=== PATIENT | male | born 1955 | race Hispanic/Latino ===

== ENCOUNTER 2017-09-07 00:10 | Emergency (ER) | payer BC, OTHER ==
--- OUTSIDE RECORDS SUMMARY | 2017-09-07 00:11 | XMS REPORT | Clinical Summary ---
:1955 Author Organization [facility] Address [address] [place] [id number] Phone Care Team Providers Name Role Phone Unavailable Primary Care Provider Unavailable Allergies No Known Allergies Current Medications Prescription Sig. Disp. Refills Start Date End Date Status SUMATRIPTAN SUCCINATE Take by mouth. Active (IMITREX ORAL) tamsulosin (FLOMAX) Take 1 capsule 30 capsule 0 08/21/2016 Active 0.4 mg Cp24 24 hr (0.4 mg total) by capsule mouth daily. Active Problems Problem Noted Date Kidney stone 08/20/2016 Social History Tobacco Use Types Packs/Day Years Used Date Never Smoker Alcohol Use Drinks/Week oz/Week Comments No Sex Assigned at Date Recorded Not on file Last Filed Vital Signs Not on file Plan of Treatment Not on file Implants Implanted Type Area Bessemer Bottom Maker Device Expiration Model / Identifier Date Serial / Lot Stent Uret Sft Makenzie [id number] - [id number] Uro Stent Right: [place] 10/29/2016 [id number] / Implanted: Qty: 1 on 08/20/2016 by Brant Stevenson MD [employer]: UROLOGY/GYNE / COLOGY [id number] Results Not on fileafter 09/06/2016
--- OUTSIDE RECORDS SUMMARY | 2017-09-07 00:12 | XMS REPORT ---
:1955 Author Organization [facility] Address [address] [place] [address] Dr. Don [address] [place] [id number] Care Team Providers Name Role Phone LORENA GRIFFIN Unavailable Unavailable Problems This patient has no known problems. Allergies, Adverse Reactions, Alerts This patient has no known allergies or adverse reactions. Medications This patient has no known medications. Results Test Description Test Time Test Comments Text Results Atomic Results Result Comments BASIC METABOLIC PANEL 2016-08-21 06:30:00 Test Item Value Reference Range Comments SODIUM (BEAKER) (test 141 meq/L 136-145 yapb=900) POTASSIUM (BEAKER) (test 4.2 meq/L 3.5-5.1 kavh=708) CHLORIDE (BEAKER) (test 109 meq/L 98-107 crdh=027) CO2 (BEAKER) (test rgaj=180) 21 meq/L 22-29 BLOOD UREA NITROGEN (BEAKER) 20 mg/dL 7-21 (test odis=735) CREATININE (BEAKER) (test 1.29 mg/dL 0.57-1.25 ktti=093) GLUCOSE RANDOM (BEAKER) 142 mg/dL 70-105 (test ipgz=226) CALCIUM (BEAKER) (test 8.8 mg/dL 8.4-10.2 rovg=437) EGFR (BEAKER) (test mL/min/1.73 sq m INSUFFICIENT CLINICAL DATA TO abbm=2250) CALCULATE ESTIMATED GFR. CBC W/PLT COUNT & AUTO [id number] 17:57:00 Test Item Value Reference Range Comments WHITE BLOOD CELL COUNT (BEAKER) (test zwqx=223) 5.4 K/ L 4.0-10.0 RED BLOOD CELL COUNT (BEAKER) (test bpkz=596) 4.06 M/ L 4.20-5.80 HEMOGLOBIN (BEAKER) (test binr=842) 13.2 GM/DL 13.0-16.8 HEMATOCRIT (BEAKER) (test ghme=883) 38.2 % 40.0-50.0 MEAN CORPUSCULAR VOLUME (BEAKER) (test umeq=918) 94.1 fL 82.0-98.0 MEAN CORPUSCULAR HEMOGLOBIN (BEAKER) (test 32.6 pg 27.0-33.0 pkyz=338) MEAN CORPUSCULAR HEMOGLOBIN CONC (BEAKER) (test 34.6 GM/DL 32.0-36.0 mzfc=951) RED CELL DISTRIBUTION WIDTH (BEAKER) (test 11.5 % 10.3-14.2 ownm=478) PLATELET COUNT (BEAKER) (test lmki=829) 120 K/CU MM 150-430 MEAN PLATELET VOLUME (BEAKER) (test xbzo=380) 8.3 fL 6.5-10.5 NUCLEATED RED BLOOD CELLS (BEAKER) (test 0 /100 WBC 0-0 emjs=585) NEUTROPHILS RELATIVE PERCENT (BEAKER) (test 58 % rhyp=669) LYMPHOCYTES RELATIVE PERCENT (BEAKER) (test 29 % hndk=300) MONOCYTES RELATIVE PERCENT (BEAKER) (test 6 % aeze=923) EOSINOPHILS RELATIVE PERCENT (BEAKER) (test 6 % ymqg=270) BASOPHILS RELATIVE PERCENT (BEAKER) (test 1 % upqb=542) NEUTROPHILS ABSOLUTE COUNT (BEAKER) (test 3.11 K/ L 1.80-8.00 cusj=731) LYMPHOCYTES ABSOLUTE COUNT (BEAKER) (test 1.58 K/ L 1.48-4.50 hnky=864) MONOCYTES ABSOLUTE COUNT (BEAKER) (test 0.31 K/ L 0.00-1.30 twuo=641) EOSINOPHILS ABSOLUTE COUNT (BEAKER) (test 0.31 K/ L 0.00-0.50 zezi=719) BASOPHILS ABSOLUTE COUNT (BEAKER) (test 0.07 K/ L 0.00-0.20 zype=405) 0.00BASI METABOLIC [id number] 17:55:00 Test Item Value Reference Range Comments SODIUM (BEAKER) (test 141 meq/L 136-145 vngk=804) POTASSIUM (BEAKER) (test 4.4 meq/L 3.5-5.1 ystd=087) CHLORIDE (BEAKER) (test 107 meq/L 98-107 auqd=343) CO2 (BEAKER) (test 27 meq/L 22-29 ksht=066) BLOOD UREA NITROGEN 21 mg/dL 7-21 (AKER) (test sjrq=133) CREATININE (AKER) (test 1.31 mg/dL 0.57-1.25 cddp=383) GLUCOSE RANDOM ([facility]) 95 mg/dL 70-105 (test muwd=972) CALCIUM (AKER) (test 9.3 mg/dL 8.4-10.2 vobt=187) EGFR ([facility]) (test mL/min/1.73 sq m INSUFFICIENT CLINICAL DATA ndej=3106) TO CALCULATE ESTIMATED GFR.
[2017-09-07] MEDS ORDERED: NA CHLORIDE 0.9% 1,000 ML ONE (00:34)
[2017-09-07 00:55] LABS: Absolute Lymphocytes (CBC) 2.6 K/uL (0.7-4.9); Absolute Monocytes 0.6 K/uL (0.1-1.3); Absolute Neutrophil 4.7 K/uL (1.8-8.0); Basophils % 0.8 % (0-1.3); Eosinophils % 4.3 % (0-4.4); Hematocrit 45.5 % (39.6-49.0); Lymphocytes % 30.8 % (15.3-44.8); MCV 90.8 fL (80-100); MPV 10.1 fL (7.6-11.3); Monocytes % 6.9 % (3.3-12.3); Potassium 3.9 mEq/L (3.6-5.0); RBC Red Blood Cell Count 5.01 M/uL (4.33-5.43)
[2017-09-07 01:01] LABS: Albumin 4.9 g/dL (3.2-5.5); Bilirubin Direct 0.1 mg/dL (0-0.2); Bilirubin Total 0.7 mg/dL (0.3-1.2)
--- NOTE | 2017-09-07 01:10 | ER ---
Nurse's Notes [facility] Name: Aaron Shelton Jr Age: 62 yrs Sex: Male : 1955 Arrival Date: 09/07/2017 Time: 00:10 Bed 4 Private MD: Diagnosis: Atrial fibrillation with spontaneous cardioversion Presentation: 09/07 00:18 Presenting complaint: Patient states: I FELT MY AFIB KICK IN AFTER I USED A LIDO PATCH. bp Transition of care: patient was not received from another setting of care. Onset of symptoms was September 06, 2017 at 23:00. Initial Sepsis Screen: Does the patient meet any 2 criteria? No. Patient's initial sepsis screen is negative. Does the patient have a suspected source of infection? No. Patient's initial sepsis screen is negative. Care prior to arrival: None. 00:18 Method Of Arrival: Ambulatory bp 00:18 Acuity: BENITA 3 bp Triage Assessment: 00:19 General: Appears in no apparent distress. comfortable, Behavior is calm, cooperative, bp appropriate for age. Pain: Denies pain. Historical: - Allergies: 00:19 No Known Allergies; bp - Home Meds: 00:19 Imitrex Oral [Active]; bp - PMHx: 00:19 kidney cancer; Kidney stones; Atrial Fib; bp - Immunization history:: Adult Immunizations up to date. - Social history:: Smoking status: Patient/guardian denies using tobacco. Screenin:24 Abuse screen: Denies threats or abuse. Denies injuries from another. Nutritional aa1 screening: No deficits noted. Tuberculosis screening: No symptoms or risk factors identified. Fall Risk None identified. Assessment: 00:24 General: Appears in no apparent distress. comfortable, Behavior is calm, cooperative, aa1 appropriate for age. Pain: Denies pain. Neuro: Level of Consciousness is awake, alert, obeys commands, Oriented to person, place, time, situation, Moves all extremities. Full function Gait is steady, Speech is normal. Cardiovascular: Reports palpitations, Denies chest pain, diaphoresis, fatigue, lightheadedness, nausea, shortness of breath, Capillary refill < 3 seconds Clubbing of nail beds is absent JVD is absent Patient's skin is warm and dry. Rhythm is atrial fibrillation. Respiratory: Airway is patent Respiratory effort is even, unlabored, Respiratory pattern is regular, symmetrical. GI: No signs and/or symptoms were reported involving the gastrointestinal system. : No signs and/or symptoms were reported regarding the genitourinary system. EENT: No signs and/or symptoms were reported regarding the EENT system. Derm: Skin is intact, is healthy with good turgor, Skin is pink, warm \T\ dry. Musculoskeletal: Circulation, motion, and sensation intact. Capillary refill < 3 seconds. 00:30 Reassessment: Pt cardiac rhythm converted to sinus kip w/o intervention. MD at aa1 bedside. Repeat EKG done at this time. Will send labs and monitor pt for rebound AF. Vital Signs: 00:19 BP 144 / 108; Pulse 55; Resp 18; Temp 98; Pulse Ox 100% ; Weight 97.52 kg; Height 6 ft. bp 0 in. (182.88 cm); 00:30 BP 132 / 86; Pulse 38; Resp 16; Pulse Ox 99% on R/A; Pain 0/10; aa1 00:19 Body Mass Index 29.16 (97.52 kg, 182.88 cm) bp ED Course: 00:10 Patient arrived in ED. ds1 00:13 Abhi Gaviria MD is Attending Physician. pkl 00:19 Triage completed. bp 00:19 Arm band placed on. bp 00:20 Patient has correct armband on for positive identification. Placed in gown. Bed in low aa1 position. Call light in reach. library monitor on. Pulse ox on. NIBP on. Warm blanket given. 00:23 EKG done, by ED staff, reviewed by Abhi Gaviria MD. aa1 00:30 Alex Voss RN is Primary Nurse. mg2 00:30 Inserted saline lock: 20 gauge in left antecubital area, using aseptic technique. Blood mg2 collected. 01:23 No provider procedures requiring assistance completed. IV discontinued, intact, mg2 bleeding controlled, No redness/swelling at site. Pressure dressing applied. Administered Medications: 00:38 Drug: NS 0.9% 1000 ml Route: IV; Rate: 100 ml/hr; Site: left antecubital; mg2 01:22 Follow up: IV Status: iv d/c upon discharge. mg2 Outcome: 01:09 Discharge ordered by . pkl :23 Discharged to home ambulatory, with family. mg2 :23 Condition: stable 01:23 Discharge instructions given to patient, family, Instructed on discharge instructions, follow up and referral plans. Demonstrated understanding of instructions, follow-up care. 01:24 Patient left the ED. mg2 Signatures: Fatimah Olivo, RN RN aa1 Abhi Gaviria MD MD pkl [place], Demi ds1 Darien Reza RN RN bp Alex Voss RN RN mg2
--- NOTE | 2017-09-07 01:10 | EDPHYS ---
Physician Documentation [facility] Name: Aaron Shelton Jr Age: 62 yrs Sex: Male : 1955 Arrival Date: 09/07/2017 Time: 00:10 Bed 4 Private MD: ED Physician Abhi Gaviria HPI: 09/07 00:38 This 62 yrs old Male presents to ER via Ambulatory with complaints of A-Fib pkl Onset. 00:38 The patient presents with a history of irregular heart beat. Context: The symptoms pkl occur at rest. Onset: The symptoms/episode began/occurred just prior to arrival, 1 hour(s) ago. H/O A. Fib. Recurrent episodes with different medications. Had Lidocaine patch for muscles pain prior to onset of A. Fib. Denies any chest pain.. Historical: - Allergies: 00:19 No Known Allergies; bp - Home Meds: 00:19 Imitrex Oral [Active]; bp - PMHx: 00:19 kidney cancer; Kidney stones; Atrial Fib; bp - Immunization history:: Adult Immunizations up to date. - Social history:: Smoking status: Patient/guardian denies using tobacco. ROS: 00:38 Eyes: Negative for injury, pain, redness, and discharge, ENT: Negative for injury, pkl pain, and discharge, Neck: Negative for injury, pain, and swelling. 00:38 Cardiovascular: Positive for palpitations, Negative for chest pain. 00:38 Respiratory: Negative for cough, shortness of breath. 00:38 Abdomen/GI: Negative for abdominal pain, nausea, vomiting, and diarrhea. 00:38 Back: Negative for acute changes. 00:38 : Negative for urinary symptoms. 00:38 MS/extremity: Negative for acute changes. 00:38 Skin: Negative for rash. 00:38 Neuro: Negative for altered mental status. Exam: 00:38 Head/Face: Normocephalic, atraumatic. Eyes: Pupils equal round and reactive to light, pkl extra-ocular motions intact. Lids and lashes normal. Conjunctiva and sclera are non-icteric and not injected. Cornea within normal limits. Periorbital areas with no swelling, redness, or edema. ENT: Nares patent. No nasal discharge, no septal abnormalities noted. Tympanic membranes are normal and external auditory canals are clear. Oropharynx with no redness, swelling, or masses, exudates, or evidence of obstruction, uvula midline. Mucous membranes moist. Neck: Trachea midline, no thyromegaly or masses palpated, and no cervical lymphadenopathy. Supple, full range of motion without nuchal rigidity, or vertebral point tenderness. No Meningismus. Chest/axilla: Normal chest wall appearance and motion. Nontender with no deformity. No lesions are appreciated. 00:38 Cardiovascular: Rate: normal, Rhythm: irregularly irregular. 00:38 ECG was reviewed by the Attending Physician. 00:38 Respiratory: the patient does not display signs of respiratory distress, Respirations: normal, Breath sounds: are clear throughout. 00:38 Abdomen/GI: Bowel sounds: normal, Palpation: abdomen is soft and non-tender, in all quadrants. 00:38 Back: Exam negative for acute changes. 00:38 : Exam negative for acute changes. 00:38 Musculoskeletal/extremity: Exam is negative for acute changes. 00:38 Skin: Exam negative for rash. 00:38 Neuro: Orientation: is normal, Mentation: is normal, Cranial nerves: grossly normal, Motor: is normal. Vital Signs: 00:19 BP 144 / 108; Pulse 55; Resp 18; Temp 98; Pulse Ox 100% ; Weight 97.52 kg; Height 6 ft. bp 0 in. (182.88 cm); 00:30 BP 132 / 86; Pulse 38; Resp 16; Pulse Ox 99% on R/A; Pain 0/10; aa1 00:19 Body Mass Index 29.16 (97.52 kg, 182.88 cm) bp MDM: 00:14 Patient medically screened. pkl 00:43 Data reviewed: vital signs, nurses notes, lab test result(s), EKG. ED course: pkl Spontaneous cardioversion noted. Marked bradycardia without any symptoms noted. Patient said this is normal for him.. 01:07 ED course: Feeling better. Asymptomatic. pkl 09/07 00:32 Order name: CBC with Diff; Complete Time: 01:04 pkl 09/07 00:32 Order name: Chem 7; Complete Time: 01:04 pkl 09/07 00:32 Order name: LFT's; Complete Time: 01:04 pkl 09/07 00:32 Order name: CPK; Complete Time: 01:04 pkl 09/07 00:32 Order name: Troponin (emerg Dept Use Only); Complete Time: 01:10 pkl Administered Medications: 00:38 Drug: NS 0.9% 1000 ml Route: IV; Rate: 100 ml/hr; Site: left antecubital; mg2 01:22 Follow up: IV Status: iv d/c upon discharge. mg2 Disposition: 09/07/17 01:09 Discharged to Home. Impression: Atrial fibrillation with spontaneous cardioversion. - Condition is Stable. - Medication Reconciliation Form, Thank You Letter, Antibiotic Education, Prescription Opioid Use form. - Follow up: Private Physician; When: As needed. - Problem is new. - Symptoms are resolved. Signatures: Dispatcher [employer] EDMS Abhi Gaviria MD MD pkl Darien Reza RN RN bp Alex Voss RN RN mg2 Corrections: (The following items were deleted from the chart) 01:24 01:09 09/07/2017 01:09 Discharged to Home. Impression: Atrial fibrillation with mg2 spontaneous cardioversion. Condition is Stable. Forms are Medication Reconciliation Form, Thank You Letter, Antibiotic Education, Prescription Opioid Use. Follow up: Private Physician; When: As needed. Problem is new. Symptoms are resolved. pkl
--- NOTE | 2017-09-07 12:01 | EKG ---
Test Date: 2017-09-07 Test Time: 00:18:13 Mat Roller: USMAN MEASUREMENT RESULTS: Intervals: Rate: 89 [place]: QRSD: 94 QT: 346 QTc: 420 [place]: P: GA: QRS: -12 T: 13 INTERPRETIVE STATEMENTS: Atrial fibrillation Abnormal ECG Compared to ECG 08/11/2016 16:06:20 Sinus bradycardia no longer present Electronically Signed On 09-07-17 12:00:37 CDT by Nic De Leon
--- NOTE | 2017-09-07 12:01 | EKG ---
Test Date: 2017-09-07 Test Time: 00:27:12 Maintenance Parts Technician: USMAN MEASUREMENT RESULTS: Intervals: Rate: 37 [place]: 182 QRSD: 100 QT: 448 QTc: 351 [place]: P: 55 [place]: 182 QRS: -20 T: 11 INTERPRETIVE STATEMENTS: Marked sinus bradycardia Abnormal ECG Compared to ECG 09/07/2017 00:18:13 Atrial fibrillation no longer present Electronically Signed On 09-07-17 12:00:33 CDT by Nic De Leon
== END 2017-09-07 01:24 | disposition home or self-care (01) ==
LOC: ER 00:10
DX: I48.91 Unspecified atrial fibrillation (principal); Z85.528 Personal history of other malignant neoplasm of kidney
CPT/HCPCS: 36415; 80048; 80076; 82550; 84484; 85025; 93005; 96360; 99284; J7030